=== PATIENT | female | born 1985 | race Caucasian/White ===

== ENCOUNTER 2017-09-06 08:24 | Inpatient (IN) | payer BC ==
[2017-09-06 09:29] VITALS: BMI 34.5
[2017-09-06 10:10] LABS: BASO % 0.5 % (0-2.0); EOS % 0.2 % (0-4.5); HEMATOCRIT 32.2 % (32.4-45.2); HEMOGLOBIN 10.3 GM/dL (10.7-15.3); LYMPH % 18.5 % (8-40); MCH 22.9 pg (25.7-33.7); MCHC 31.9 g/dl (32.0-36.0); MEAN CELL VOLUME 71.9 fl (80-96); MEAN PLT VOLUME 9.3 fl (7.5-11.1); MONO % 3.8 % (3.8-10.2); PLATELET COUNT 154 K/MM3 (134-434); RBC 4.48 M/mm3 (3.60-5.2)
[2017-09-06] MEDS: ELECTROLYTE-148 SOLN 1,000 ML IV SCH ×3 (10:15→21:00)
[2017-09-06 10:32] LABS: INR 0.96 (0.82-1.09); PROTHROMBIN TIME (PATIENT) 10.9 SEC (9.98-11.88)
[2017-09-06 10:33] LABS: ANION GAP 10 (8-16); BLOOD UREA NITROGEN 8 mg/dL (7-18); CALCIUM 8.7 mg/dL (8.5-10.1); CHLORIDE 108 mmol/L (98-107); CO2 22 mmol/L (21-32); CREATININE 0.5 mg/dL (0.55-1.02); GLUCOSE,RANDOM 108 mg/dL (74-106); POTASSIUM 3.8 mmol/L (3.5-5.1); SODIUM 140 mmol/L (136-145)
[2017-09-06 10:34] LABS: ACTIVATED PTT 26.4 SECONDS (26.9-34.4)
[2017-09-06] MEDS ORDERED: OXYTOCIN 30 UNITS in 0.9% NS 30 UNIT/500 ML INFUS.BAG IVPB SCH (11:30)
[2017-09-06 12:15] LABS: RPR NONREACTIVE (NONREACTIVE)
[2017-09-06] MEDS ORDERED: TUBERCULIN PPD 5 TU/0.1ML SYRINGE (IN PATIENT USE ONLY) ID ONE (14:00)
--- NOTE | 2017-09-06 14:41 | PN ---
Progress Note (short form) - Note Progress Note: cx 4 cm, 80 vx -3 mi, fhr cat 1, contraction q 3 min
--- NOTE | 2017-09-06 15:23 | HP ---
Past Medical History - Primary Care Physician PCP:: Anthony Linton - Admission Chief Complaint: post term for pitocin induction History of Present Illness: 32 yo f 40.3 weeks, admitted for pitocin induction, rba discussed , cx 3 cm 75 vx -3 mi, fhe cat i, irregular mild contraction not felt by patient, previous hx of LGA ,risks of induction discusseds History Source: Patient Limitations to Obtaining History: No Limitations - Past Medical History ...: 3 ...Para: 2 ...Term: 2 ...LMP: 11/26/16 ... Weeks Gestation by Dates: 40.3 ...EDC by Dates: 09/03/17 - Past Surgical History Hx Myomectomy: No Hx Transabdominal Cerclage: No - Smoking History Smoking history: Never smoked Have you smoked in the past 12 months: No - Alcohol/Substance Use Hx Alcohol Use: No - Social History Usual Living Arrangement: Yes: With Spouse History of Recent Travel: No Home Medications - Allergies Allergies/Adverse Reactions: Allergies Allergy/AdvReac Type Severity Reaction Status Date / Time No Known Allergies Allergy Verified 09/06/17 09:18 - Home Medications Home Medications: Ambulatory Orders Vit No.130/Iron/Folic [ Vitamins] 1 each PO DAILY 07/30/14 Review of Systems - Review of Systems Constitutional: reports: No Symptoms Eyes: reports: No Symptoms HENT: reports: No Symptoms Cardiovascular: reports: No Symptoms Respiratory: reports: No Symptoms Gastrointestinal: reports: No Symptoms Genitourinary: reports: No Symptoms Breasts: reports: No Symptoms Reported Musculoskeletal: reports: Back Pain Integumentary: reports: No Symptoms Neurological: reports: No Symptoms Endocrine: reports: No Symptoms Hematology/Lymphatic: reports: No Symptoms Psychiatric: reports: No Symptoms Physical Exam - Maternity Vital Signs: Vital Signs Temperature 99.5 F 09/06/17 14:00 Pulse Rate 68 09/06/17 14:00 Respiratory Rate 20 09/06/17 14:00 Blood Pressure 136/82 09/06/17 14:00 O2 Sat by Pulse Oximetry (%) Constitutional: Yes: Well Nourished, No Distress, Calm Eyes: Yes: WNL, Conjunctiva Clear, EOM Intact HENT: Yes: WNL, Atraumatic, Normocephalic Neck: Yes: WNL, Supple, Trachea Midline Cardiovascular: Yes: WNL, Regular Rate and Rhythm Breast(s): Yes: WNL - Abdominal Exam/OB Fundal Height: 40 Number of Fetuses: Single Presentation: Vertex Contractions: Yes Regularity: Irregular Intensity: Unaware Monitor Mode: External Heart Rate Location: [facility] Category: I Accelerations: Uniform Decelerations: None - Vaginal Exam/OB Vaginal Bleediing: No Speculum Exam: No Dilatation (cm): 3 cm Effacement (%): 70 Amniotic Membrane Status: Intact Station: -3 - Physical Exam Musculoskeletal: Yes: WNL Extremities: Yes: WNL Edema: Yes Edema: LLE: Trace, RLE: Trace Deep Tendon Reflex Grade: Normal +2 ...Motor Strength: WNL Psychiatric: Yes: WNL - Labs Lab Results: CBC, BMP 09/06/17 10:00 09/06/17 10:00 Hemorrhage Risk Assessment - Risk Factors Medium Risk Factors: Yes: None High Risk Factors: Yes: None Risk Score: 1 Risk Level: Medium Risk Problem List - Problems (1) Post term over 40 weeks Code(s): O48.0 - POST-TERM (2) LGA (large for gestational age) fetus Code(s): VYL8053 - Assessment/Plan pitocin induction, rba discussed fhm,pain management
[2017-09-06] MEDS ORDERED: PROMETHAZINE HCL 25 MG/1 ML VIAL IVPUSH ONE (15:28)
[2017-09-06] MEDS ORDERED: BUTORPHANOL TARTRATE 1 MG/ML VIAL IVPUSH PRN (15:28)
[2017-09-06] MEDS ORDERED: FENTANYL/BUPIVACAINE/NS/PF - PCEA - 50 ML DISP.SYRIN EP ONE (20:23)
[2017-09-06] MEDS ORDERED: NALOXONE HCL 0.4 MG/ML VIAL IVPUSH PRN (20:57)
[2017-09-06] MEDS ORDERED: FENTANYL/BUPIVACAINE/NS/PF - PCEA - 50 ML DISP.SYRIN EP SCH (21:00)
[2017-09-06] MEDS ORDERED: BUPIVACAINE HCL/PF 0.5% (5MG/ML) 10 ML VIAL ONE (22:11)
[2017-09-06] MEDS ORDERED: OXYTOCIN 20 UNITS in 0.9% NS 20 UNIT/1,000 ML INFUS.BAG IV ONE (22:53)
--- NOTE | 2017-09-06 23:02 | PN ---
Progress Note (short form) - Note Progress Note: 924 pm \ cx 5 cm, 80 vx -2 arom, clear , fhr cat 1, regular contraction q 2 min Problem List - Problems (1) Post term over 40 weeks Code(s): O48.0 - POST-TERM (2) LGA (large for gestational age) fetus Code(s): JND6959 -
--- NOTE | 2017-09-06 23:03 | PN ---
Progress Note (short form) - Note Progress Note: full 100 vx -1, fhr car 1 Problem List - Problems (1) Post term over 40 weeks Code(s): O48.0 - POST-TERM (2) LGA (large for gestational age) fetus Code(s): EKG9971 -
[2017-09-07] MEDS ORDERED: METHYLERGONOVINE MALEATE 0.2 MG/1 ML AMP IM PRN (00:31)
[2017-09-07] MEDS ORDERED: oxyCODONE HCL 5 MG TABLET PO PRN (00:31)
[2017-09-07] MEDS ORDERED: ACETAMINOPHEN 325 MG TABLET (FP) PO PRN (00:31)
[2017-09-07] MEDS ORDERED: BISACODYL 10 MG SUPP.RECT RC PRN (00:31)
[2017-09-07] MEDS ORDERED: WITCH HAZEL 50% (TUCKS) 40 PAD/JAR PAD TP PRN (00:31)
[2017-09-07] MEDS ORDERED: BENZOCAINE 20% 57 GM BOTTLE TP PRN (00:31)
[2017-09-07] MEDS ORDERED: BENZOCAINE 28 GM HEMORRHOIDAL OINTMENT TP PRN (00:31)
[2017-09-07] MEDS ORDERED: IBUPROFEN 600 MG TABLET (FP) PO PRN (00:31)
[2017-09-07] MEDS ORDERED: OXYTOCIN 20 UNITS in 0.9% NS 20 UNIT/1,000 ML INFUS.BAG IV SCH (00:45)
[2017-09-07 00:49] LABS: ARTERIAL BLD GAS O2 SATURATION 32.2 % (90-98.9); ARTERIAL BLOOD GAS BASE EXCESS -3.1 meq/l (-2-2); ARTERIAL BLOOD GAS PCO2 56.5 mmHg (35-45); ARTERIAL BLOOD GAS PO2 21.2 mmHg (80-100); ARTERIAL BLOOD GAS pH 7.26 (7.35-7.45)
[2017-09-07 00:55] LABS: VENOUS PH 7.34 (7.32-7.42); VENOUS PO2 24.6 mmHg (28-48)
[2017-09-07] MEDS ORDERED: ACETAMINOPHEN 325 MG TABLET (FP) ONE (01:13)
--- NOTE | 2017-09-07 09:35 | DS ---
Physical Exam-PET SITTER Vital Signs: Vital Signs Temperature 98.6 F 09/07/17 06:00 Pulse Rate 77 09/07/17 06:00 Respiratory Rate 20 09/07/17 06:00 Blood Pressure 140/80 09/07/17 06:00 O2 Sat by Pulse Oximetry (%) 100 09/07/17 01:20 Constitutional: Yes: Well Nourished, No Distress, Calm Eyes: Yes: WNL, Conjunctiva Clear, EOM Intact HENT: Yes: WNL, Atraumatic, Normocephalic Neck: Yes: WNL, Supple, Trachea Midline Cardiovascular: Yes: WNL, Regular Rate and Rhythm Respiratory: Yes: WNL, Regular, CTA Bilaterally Gastrointestinal: Yes: WNL ...Rectal Exam: Yes: WNL Renal/: Yes: WNL ....Post : Yes: Uterus firm, Uterus non-tender, Slight lochia rubra Breast(s): Yes: WNL Musculoskeletal: Yes: WNL Extremities: Yes: WNL Edema: RLE: Trace Integumentary: Yes: WNL Neurological: Yes: WNL, Alert, Oriented ...Motor Strength: WNL Psychiatric: Yes: WNL, Alert, Oriented Labs: CBC, BMP 09/06/17 10:00 09/06/17 10:00 Delivery - Delivery Vaginal Delivery: Spontaneous (no complication) Type of Anesthesia: Local, Epidural Episiotomy/Laceration: Vaginal Extension/lac, 1st degree EBL (cc): 300 Delivery, Single - Stages of Labor Date 1st Stage Initiatied: 09/06/17 Time 1st Stage Initiated: 21:00 Date 2nd Stage Initiated: 09/06/17 Time 2nd Stage Initiated: 22:50 Date of Delivery: 09/07/17 Time of Delivery: 00:14 Time Placenta Delivered: 00:25 Placenta: Yes: Spontaneous - Condition of Medical Orderly/Value Stream Leader Present: Yes Name: Andressa Vidal Infant Gender: Female Weight: 9 lb 2 oz Position: Left, OA Total Hours ROM (Hrs/Mins): 2hrs 59min - 1 Minute Total Score: 9 5 Minutes Total Score: 9 - Feeding Plan Initial Plan: Exclusive throughout hospitalization Discharge Summary Reason For Visit: INDUCTION OF LABOR Current Active Problems LGA (large for gestational age) fetus (Acute) Post term over 40 weeks (Acute) Procedures: Principal: pitocin induction, post date, Hospital Course: no complication - Instructions Diet, Activity, Other Instructions: regular diet, follow up office 4 weeks, no intercourse - Home Medications Comprehensive Discharge Medication List: Ambulatory Orders Vit No.130/Iron/Folic [ Vitamins] 1 each PO DAILY 07/30/14
[2017-09-07] MEDS: PRENATAL VITAMINS W/ FOLIC ACID TABLET (FP) PO SCH (09:40)
[2017-09-07] MEDS: FERROUS SO4 325 MG TABLET (FP) PO SCH ×2 (09:40→21:50)
[2017-09-07] MEDS ORDERED: DIPHTH,PERTUSS(ACELL),TET 0.5 ML DISP.SYRIN IM ONE (14:00)
[2017-09-08 07:32] LABS: BASO % 0.6 % (0-2.0); EOS % 1.2 % (0-4.5); HEMATOCRIT 29.3 % (32.4-45.2); HEMOGLOBIN 9.4 GM/dL (10.7-15.3); LYMPH % 17.3 % (8-40); MCH 23.2 pg (25.7-33.7); MCHC 32.1 g/dl (32.0-36.0); MEAN CELL VOLUME 72.3 fl (80-96); MEAN PLT VOLUME 8.8 fl (7.5-11.1); MONO % 4.3 % (3.8-10.2); NEUT % 76.6 % (42.8-82.8); PLATELET COUNT 146 K/MM3 (134-434); RBC 4.05 M/mm3 (3.60-5.2); RDW 18.5 % (11.6-15.6); WHITE BLOOD COUNT 8.3 K/mm3 (4.0-10.0)
--- NOTE | 2017-09-08 08:33 | PN ---
Post Progress Note - Subjective Subjective: No complaints Post Day: 1 Type of Delivery: Vital Signs: Vital Signs Temperature 97.7 F 09/07/17 21:06 Pulse Rate 70 09/07/17 21:06 Respiratory Rate 20 09/07/17 21:06 Blood Pressure 131/74 09/07/17 21:06 O2 Sat by Pulse Oximetry (%) 100 09/07/17 01:20 Breast Exam: Yes: Soft Uterus: Yes: Fundus Firm, Non-tender Abdomen/GI: Yes: Abdomen soft, Passing flatus, Tolerating PO Lochia: Yes: Rubra Lochia, amount: Small Extremities: Yes: Calves non-tender Activity: Ambulating - Labs Labs: CBC WBC 8.3 K/mm3 (4.0-10.0) 09/08/17 07:00 RBC 4.05 M/mm3 (3.60-5.2) 09/08/17 07:00 Hgb 9.4 GM/dL (10.7-15.3) L 09/08/17 07:00 Hct 29.3 % (32.4-45.2) L 09/08/17 07:00 MCV 72.3 fl (80-96) L 09/08/17 07:00 MCH 23.2 pg (25.7-33.7) L 09/08/17 07:00 MCHC 32.1 g/dl (32.0-36.0) 09/08/17 07:00 RDW 18.5 % (11.6-15.6) H 09/08/17 07:00 Plt Count 146 K/MM3 (134-434) 09/08/17 07:00 MPV 8.8 fl (7.5-11.1) 09/08/17 07:00 Neutrophils % 76.6 % (42.8-82.8) 09/08/17 07:00 Lymphocytes % 17.3 % (8-40) 09/08/17 07:00 Monocytes % 4.3 % (3.8-10.2) 09/08/17 07:00 Eosinophils % 1.2 % (0-4.5) D 09/08/17 07:00 Basophils % 0.6 % (0-2.0) 09/08/17 07:00 Assessment/Plan 32yo s/p , doing well stable, afebrile. care instructions reviewed. Continue routine care. Ambulation encouraged Discharge instruction reviewed.
[2017-09-08] MEDS: PRENATAL VITAMINS W/ FOLIC ACID TABLET (FP) PO SCH (09:25)
[2017-09-08] MEDS: FERROUS SO4 325 MG TABLET (FP) PO SCH ×2 (09:25→22:42)
[2017-09-08] MEDS ORDERED: SENNOSIDES/DOCUSATE COMBO (SENNA PLUS) TABLET (UD) PO PRN (22:00)
[2017-09-09 08:06] VITALS: BP 121/76; PULSE 78; TEMP 97.6
--- NOTE | 2017-09-09 09:07 | PN ---
Post Progress Note - Subjective Subjective: Patient without acute complaints. Reports tolerating oral intake without nausea or vomiting. Ambulating without dizziness. Denies fevers or chills. Pain well controlled with oral pain medication. without difficulty. Passing flatus. Post Day: 2 Type of Delivery: Vital Signs: Vital Signs Temperature 97.6 F 09/09/17 08:05 Pulse Rate 78 09/09/17 08:05 Respiratory Rate 20 09/09/17 08:05 Blood Pressure 121/76 09/09/17 08:05 O2 Sat by Pulse Oximetry (%) 100 09/07/17 01:20 Breast Exam: Yes: Soft Uterus: Yes: Fundus Firm, Fundus below umbilicus Abdomen/GI: Yes: Abdomen soft, Passing flatus, Tolerating PO. No: Abdominal Distention, Tender Lochia: Yes: Serosa Lochia, amount: Small Extremities: Yes: Calves non-tender, Edema (+1) Activity: Ambulating - Labs Labs: CBC WBC 8.3 K/mm3 (4.0-10.0) 09/08/17 07:00 RBC 4.05 M/mm3 (3.60-5.2) 09/08/17 07:00 Hgb 9.4 GM/dL (10.7-15.3) L 09/08/17 07:00 Hct 29.3 % (32.4-45.2) L 09/08/17 07:00 MCV 72.3 fl (80-96) L 09/08/17 07:00 MCH 23.2 pg (25.7-33.7) L 09/08/17 07:00 MCHC 32.1 g/dl (32.0-36.0) 09/08/17 07:00 RDW 18.5 % (11.6-15.6) H 09/08/17 07:00 Plt Count 146 K/MM3 (134-434) 09/08/17 07:00 MPV 8.8 fl (7.5-11.1) 09/08/17 07:00 Neutrophils % 76.6 % (42.8-82.8) 09/08/17 07:00 Lymphocytes % 17.3 % (8-40) 09/08/17 07:00 Monocytes % 4.3 % (3.8-10.2) 09/08/17 07:00 Eosinophils % 1.2 % (0-4.5) D 09/08/17 07:00 Basophils % 0.6 % (0-2.0) 09/08/17 07:00 Assessment/Plan 32 yo PPD # 2 s/p , afebrile, vital signs stable, stable for discharge home today 1. Patient stable for discharge home today. 2. Patient encouraged to contact MD for: - Severe pain not controlled by oral pain medication - Fevers or chills - Nausea or vomiting, intolerance of oral intake 3. Patient to follow up in office in 4-6 weeks for visit
[2017-09-09] MEDS: FERROUS SO4 325 MG TABLET (FP) PO SCH (09:58)
[2017-09-09] MEDS: PRENATAL VITAMINS W/ FOLIC ACID TABLET (FP) PO SCH (09:58)
== END 2017-09-09 11:15 | disposition home or self-care (01) | DRG 775 ==
LOC: JLDR 08:24 → J3W 09-07 02:10
PROVIDERS: ADMIT Obstetrics & Gynecology; ATTEND Obstetrics & Gynecology
PROC: 10E0XZZ Delivery of Products of Conception, External Approach (ICD-10-PCS; principal; 2017-09-07)
PROC: 0HQ9XZZ Repair Perineum Skin, External Approach (ICD-10-PCS; 2017-09-07)
DX: O48.0 Post-term pregnancy (principal); O36.63X0 Maternal care for excessive fetal growth, third trimester, not applicable or unspecified; O70.0 First degree perineal laceration during delivery; Z3A.40 40 weeks gestation of pregnancy; Z37.0 Single live birth
CPT/HCPCS: 36415; 36600; 59409; 80048; 82803; 85025; 85461; 85610; 85730; 86593; 86850; 86900; 86901; 86999; 87389; 90715

== ENCOUNTER 2017-11-18 10:38 | Day surgery (SDC) | payer BC, OTHER ==
[2017-11-17 16:55] VITALS: BMI 28.0
[2017-11-18 10:58] LABS: MCH 25.9 pg (25.7-33.7); MCHC 33.3 g/dl (32.0-36.0); MEAN CELL VOLUME 77.7 fl (80-96); MEAN PLT VOLUME 7.7 fl (7.5-11.1); PLATELET COUNT 198 K/MM3 (134-434); RBC 4.63 M/mm3 (3.60-5.2); RDW 19.9 % (11.6-15.6); WHITE BLOOD COUNT 4.2 K/mm3 (4.0-10.0)
--- NOTE | 2017-11-18 11:40 | HP ---
History & Physical Update - History History: No Change - Physical Physical: No Change - Assessment Assessment: No Change - Plan Plan: No Change <Jr Car - Last Filed: 11/18/17 11:40> - Plan Currently as noted:: Excision of right axillary mass <Kian Scherer - Last Filed: 11/18/17 12:55>
[2017-11-18] MEDS ORDERED: LIDOCAINE 1%/EPI 1:100000 (20 ML MULTI DOSE VIAL) ONE (13:13)
[2017-11-18] MEDS ORDERED: MIDAZOLAM HCL 2 MG/2 ML SINGLE DOSE VIAL ONE (13:30)
[2017-11-18] MEDS ORDERED: PROPOFOL 20 ML ONE (13:30)
[2017-11-18] MEDS ORDERED: SUCCINYLCHOLINE CHLORIDE 200 MG/10 ML VIAL ONE (14:00)
[2017-11-18] MEDS ORDERED: LIDOCAINE HCL 1%, 10 MG/ML (20ML VIAL) INF ONE ×2 (14:10)
[2017-11-18] MEDS ORDERED: LIDOCAINE HCL 1%, 10 MG/ML (20ML VIAL) ONE (14:20)
[2017-11-18] MEDS ORDERED: KETOROLAC TROMETHAMINE 30 MG/1 ML VIAL ONE (14:20)
[2017-11-18] MEDS ORDERED: DEXAMETHASONE SOD PHOSPHATE 4 MG/1 ML VIAL ONE (14:20)
--- NOTE | 2017-11-18 14:41 | OP ---
Operative Note - Note: Operative Date: 11/18/17 Pre-Operative Diagnosis: Right axillary mass Operation: Excision of Right axillary mass Anesthesia: MAC Estimated Blood Loss (mls): 5 Fluid Volume Replaced (mls): 700 Operative Report Dictated: Yes
--- NOTE | 2017-11-18 14:42 | SURG ---
Surgery Orthopedics Pediatric Physician Note Orthopedics Pediatric Physician: Jr Car PA-C Date of Service: 11/18/17 Diagnosis: Right axillary mass Procedure: Excision of right axillary mass I was present for the entirety of the operative procedure. For further detail, please refer to operative report.
[2017-11-18 14:58] VITALS: TEMP 97.9
--- NOTE | 2017-11-18 15:34 | OP ---
DATE OF OPERATION: 11/18/2017 SURGEON: Brenda Scherer MD MOP MAN: Dr. Jr Biswas PREOPERATIVE DIAGNOSIS: Right axillary mass. POSTOPERATIVE DIAGNOSIS: Right axillary mass. PROCEDURE: Excision of right axillary mass. SPECIMEN: Right axillary mass. ESTIMATED BLOOD LOSS: 5 mL. DRAINS: None. ANESTHESIA: MAC/local. REASON FOR PROCEDURE: This is a 32-year-old female who presented to the office for a right axillary mass. After examining and confirming there was an axillary mass , the risks and benefits of the procedure of an excision of axillary mass were explained. These included bleeding; infection; injury to surrounding structures, including vessel injury, nerve injury, injury to the breast ductal system of the breast, brachial plexus, axillary nerves; neuralgia; wound dehiscence; abscess formation ; seroma; hematoma, were explained as some of the complications. She understood and signed informed consent. DESCRIPTION OF PROCEDURE: The patient was placed supine on the operating table. She underwent MAC by anesthesia. The area was prepped and draped in sterile fashion. Timeout was performed. A curvilinear incision was made over the level of the mass. A dissection was performed and the mass entirely dissected free circumferentially and sent off the field. Hemostasis was obtained. Copious irrigation was performed until dry. A 3-0 Vicryl was used to close the deep dermal tissue and 4-0 Biosyn used to close the subcutaneous tissue. Sterile dressings were applied. The patient tolerated the procedure well, transferred to recovery room in stable condition. BRENDA SCHERER M.D. [facility]/[id number] MTDD
[2017-11-18 16:50] VITALS: BP 107/60; PULSE 60
--- NOTE | 2017-11-23 17:32 | PATH ---
Surgical Pathology Report Patient Name: ADY POMPA [facility]. Rec. #: [id number] /Age/Gender: 1985 (Age: 32) / F Account: [id number] Location: [facility] [place] SURGICAL Taken: 11/18/2017 Received: 11/19/2017 Reported: 11/23/2017 Physicians: Kian Scherer M.D. Specimen(s) Received RIGHT AXILLARY MASS Clinical History Right axillary mass Final Diagnosis RIGHT BREAST AXILLARY MASS, EXCISION: ACCESSORY BREAST TISSUE WITH FOCAL LACTATIONAL CHANGE AND MILD CHRONIC INFLAMMATION. Electronically Signed Rose Candelaria M.D. Gross Description Received in formalin labeled "right axillary mass," is a 2.2 x 1.2 x 0.8 cm ferrera-yellow, irregular, unoriented portion of soft tissue. The specimen is inked blue and serially sectioned. Sectioning reveals ferrera-yellow, focally firm fibrofatty tissue. The specimen is entirely and sequentially submitted in 3 cassettes. /11/19/2017 [place]udi/11/19/2017
== END 2017-11-18 16:40 | disposition home or self-care (01) ==
LOC: JASU-SURG 10:38
PROVIDERS: ATTEND Surgery
PROC: 0JB60ZZ Excision of Chest Subcutaneous Tissue and Fascia, Open Approach (ICD-10-PCS; principal; 2017-11-18 12:30)
DX: D21.3 Benign neoplasm of connective and other soft tissue of thorax (principal)
CPT/HCPCS: 36415; 84703; 85027; 88307-TC

== ENCOUNTER 2020-04-26 20:52 | Emergency (ER) | payer BC, OTHER ==
[2020-04-26 21:11] VITALS: BP 121/45; PULSE 74; TEMP 97; BMI 31.3
[2020-04-26] MEDS ORDERED: DIPHTH,PERTUSS(ACELL),TET 0.5 ML DISP.SYRIN IM ONE (21:11)
[2020-04-26] MEDS ORDERED: BACITRACIN 15 GM TUBE TOPICAL OINTMENT ONE (21:13)
== END 2020-04-26 21:33 | disposition home or self-care (01) ==
LOC: JERFT 20:52 → JER 20:52 → JERFT 21:33
DX: S61.412A Laceration without foreign body of left hand, initial encounter (principal)
CPT/HCPCS: 99284-25

== ENCOUNTER 2020-08-15 07:00 | Inpatient (IN) | payer BC, OTHER ==
[2020-08-15 07:56] VITALS: BMI 36.0
[2020-08-15 08:24] LABS: INR 0.92 (0.83-1.09); PROTHROMBIN TIME (PATIENT) 11.3 SEC (9.7-13.0)
[2020-08-15 08:27] LABS: ACTIVATED PTT 27.5 SECONDS (25.2-36.5)
[2020-08-15 08:30] LABS: POTASSIUM 3.8 mmol/L (3.5-5.1)
[2020-08-15 08:31] LABS: CALCIUM 8.5 mg/dL (8.5-10.1)
[2020-08-15 08:32] LABS: BLOOD UREA NITROGEN 8.1 mg/dL (7-18)
[2020-08-15] MEDS ORDERED: BUPIVACAINE HCL/PF 0.25% (2.5MG/ML) 10 ML VIAL ONE (08:32)
[2020-08-15] MEDS ORDERED: FENTANYL/BUPIVACAINE/NS/PF - PCEA - 50 ML DISP.SYRIN EP ONE (08:33)
[2020-08-15] MEDS ORDERED: PCA PUMP NR ONE (08:34)
[2020-08-15 08:35] LABS: CREATININE 0.5 mg/dL (0.55-1.3)
[2020-08-15 09:08] LABS: BASO % 0.2 % (0-2.0); EOS % 0.1 % (0-4.5); HEMATOCRIT 30.1 % (32.4-45.2); HEMOGLOBIN 9.6 GM/dL (10.7-15.3); LYMPH % 11.6 % (8-40); MCH 21.8 pg (25.7-33.7); MCHC 31.8 g/dl (32.0-36.0); MEAN CELL VOLUME 68.5 fl (80-96); MEAN PLT VOLUME 9.5 fl (7.5-11.1); MONO % 4.7 % (3.8-10.2); NEUT % 83.4 % (42.8-82.8); PLATELET COUNT 199 K/MM3 (134-434); RBC 4.39 M/mm3 (3.60-5.2); RDW 17.6 % (11.6-15.6); WHITE BLOOD COUNT 7.2 K/mm3 (4.0-10.0)
[2020-08-15] MEDS ORDERED: OXYTOCIN 20 UNITS in 0.9% NS 20 UNIT/1,000 ML INFUS.BAG IV ONE ×2 (09:43→12:39)
[2020-08-15 09:55] LABS: ANISOCYTOSIS 2+; MACROCYTOSIS 0; PLATELET ESTIMATE NORMAL; TARGET CELLS 1+
[2020-08-15] MEDS: D5W-LR W/ 20 UNITS OXYTOCIN 20 UNIT/1,000 ML INFUS.BAG IV SCH ×2 (10:35→12:50)
[2020-08-15] MEDS ORDERED: BISACODYL 10 MG SUPP.RECT RC PRN (10:49)
[2020-08-15] MEDS ORDERED: BENZOCAINE 20% 57 GM BOTTLE TP PRN (10:49)
[2020-08-15] MEDS ORDERED: METHYLERGONOVINE MALEATE 0.2 MG/1 ML AMP IM PRN (10:49)
[2020-08-15] MEDS ORDERED: WITCH HAZEL 50% (TUCKS) 40 PAD/JAR PAD TP PRN (10:49)
[2020-08-15] MEDS ORDERED: IBUPROFEN 600 MG TABLET (FP) PO PRN (10:49)
[2020-08-15] MEDS ORDERED: BENZOCAINE 28 GM HEMORRHOIDAL OINTMENT TP PRN (10:49)
[2020-08-15] MEDS ORDERED: ACETAMINOPHEN 325 MG TABLET (FP) PO PRN (10:49)
[2020-08-15 11:29] LABS: CORD BASE EXCESS -5.3 mmol/L (0-2); CORD HCO3 19.8 mmHg (20-29); CORD pH 7.335 (7.14-7.44)
[2020-08-15] MEDS ORDERED: ACETAMINOPHEN 325 MG TABLET (FP) ONE (11:31)
[2020-08-15] MEDS ORDERED: IBUPROFEN 600 MG TABLET (FP) PO ONE (11:31)
[2020-08-15] MEDS: FERROUS SO4 325 MG TABLET (FP) PO SCH (18:28)
[2020-08-16 08:50] LABS: BASO % 0.4 % (0-2.0); EOS % 0.5 % (0-4.5); HEMATOCRIT 25.9 % (32.4-45.2); HEMOGLOBIN 8.2 GM/dL (10.7-15.3); LYMPH % 18.9 % (8-40); MCH 21.9 pg (25.7-33.7); MCHC 31.8 g/dl (32.0-36.0); MEAN CELL VOLUME 68.8 fl (80-96); MEAN PLT VOLUME 9.4 fl (7.5-11.1); MONO % 3.5 % (3.8-10.2); NEUT % 76.7 % (42.8-82.8); PLATELET COUNT 180 K/MM3 (134-434); RBC 3.77 M/mm3 (3.60-5.2); RDW 17.8 % (11.6-15.6); WHITE BLOOD COUNT 7.7 K/mm3 (4.0-10.0)
[2020-08-16] MEDS: FERROUS SO4 325 MG TABLET (FP) PO SCH ×2 (10:28→17:27)
[2020-08-16] MEDS: PRENATAL VITAMINS W/ FOLIC ACID TABLET (FP) PO SCH (10:28)
[2020-08-16] MEDS ORDERED: SENNOSIDES/DOCUSATE COMBO (SENNA PLUS) TABLET (UD) PO PRN (22:00)
[2020-08-17] MEDS: PRENATAL VITAMINS W/ FOLIC ACID TABLET (FP) PO SCH (10:15)
[2020-08-17] MEDS: FERROUS SO4 325 MG TABLET (FP) PO SCH (10:15)
[2020-08-17 12:18] VITALS: BP 122/74; PULSE 76; TEMP 98.7
== END 2020-08-17 11:25 | disposition home or self-care (01) | DRG 806 ==
LOC: JLDR 07:00 → J3W 13:00
PROVIDERS: ADMIT Obstetrics & Gynecology; ATTEND Obstetrics & Gynecology
PROC: 10E0XZZ Delivery of Products of Conception, External Approach (ICD-10-PCS; principal; 2020-08-15)
PROC: 0W8NXZZ Division of Female Perineum, External Approach (ICD-10-PCS; 2020-08-15)
DX: O48.0 Post-term pregnancy (principal); O36.0130 Maternal care for anti-D [Rh] antibodies, third trimester, not applicable or unspecified; Z37.0 Single live birth; O24.420 Gestational diabetes mellitus in childbirth, diet controlled; O69.81X0 Labor and delivery complicated by cord around neck, without compression, not applicable or unspecified; O70.0 First degree perineal laceration during delivery; O90.81 Anemia of the puerperium; D64.9 Anemia, unspecified; O26.893 Other specified pregnancy related conditions, third trimester; Z67.11 Type A blood, Rh negative; Z3A.40 40 weeks gestation of pregnancy
CPT/HCPCS: 36415; 36600; 59409; 80048; 82803; 82962; 85025; 85461; 85610; 85730; 86780; 86850; 86900; 86901; 86999; C9803; U0003; U0005